=== PATIENT | male | born 1990 | race Caucasian/White ===

== ENCOUNTER 2018-02-17 13:44 | Emergency (ER) | payer OTHER ==
[~2018-02-17] VITALS: Ht 180.3 cm; Wt 113.4 kg
[2018-02-17 14:17] LABS: ABSOLUTE BASOPHILS 0.1 thou/uL (0.0-0.2); ABSOLUTE EOSINOPHILS 0.1 thou/uL (0.0-0.7); ABSOLUTE LYMPHOCYTES 3.1 thou/uL (0.8-5.3); ABSOLUTE MONOCYTES 0.9 thou/uL (0.0-1.2); ABSOLUTE NEUTROPHILS 6.7 thou/uL (1.6-8.1); BASOPHILS 0.6 %; EOSINOPHILS 0.5 %; HEMATOCRIT 49.7 % (42.0-52.0); HEMOGLOBIN 16.6 gm/dL (14.0-18.0); LYMPHOCYTES 28.5 %; MCH 28.3 pg (26.0-34.0); MCHC 33.5 g/dL (28.0-37.0); MCV 84.5 fL (80.0-100.0); MONOCYTES 8.2 %; MPV 8.9 fl. (7.2-11.1); NUCLEATED RBCS 0 /100WBC; PLATELET COUNT* 235 thou/uL (150-400); POLYS 62.2 %; RBC 5.88 mil/uL (4.50-6.00); RDW-CV 13.6 % (10.5-14.5); WBC 10.7 thou/uL (4.0-11.0)
[2018-02-17 14:25] LABS: CALCIUM 8.8 mg/dL (8.5-10.1); CREATININE 1.4 mg/dL (0.6-1.3); POTASSIUM 3.3 mmol/L (3.5-5.1)
[2018-02-17 14:30] LABS: ALBUMIN 3.7 g/dL (3.4-5.0); TOTAL BILIRUBIN 0.6 mg/dL (<0.1-1.0); TOTAL PROTEIN 7.7 g/dL (6.4-8.2)
[2018-02-17] MEDS ORDERED: TORADOL 10 MG T10 MG PO (17:35)
[2018-02-17] MEDS ORDERED: VALIUM5 MG PO (17:35)
[2018-02-17] MEDS ORDERED: NORCO 5-325 TA1 EACH PO (17:35)
[2018-02-17 17:59] VITALS: BP 127/80
--- NOTE | 2018-02-19 12:46 | EKG ---
[place] [address] ELECTROCARDIOGRAM REPORT Name: ALEX SOLANO [facility] [id number] Admission: 02/17/18 Attend Phys: Discharge: 02/17/18 Date of : 88 Report #: [id number] THIS REPORT FOR: //name// [facility] ED Test Date: 2018-02-17 Test Time: 13:59:55 Pat Name: ALEX SOLANO Department: Room: Gender: M [employer]: : 1990 Requested By: Sri Marquis Order Number: [id number] Reading : Jonathan Lucero Measurements Intervals [place] Rate: 120 P: 36 W[place]: 148 QRS: 53 QRSD: 87 T: 5 QT: 313 QTc: 443 Interpretive Statements Sinus tachycardia No previous ECG available for comparison Electronically Signed On 02-19-2018 12:45:58 CDT by Jonathan Lucero [email or web address] <ELECTRONICALLY SIGNED> By: Jonathan Lucero MD, [facility] 02/19/18 1245 1359 [id number] Jonathan Lucero MD, FACC /EPI
== END 2018-02-17 17:59 | disposition home or self-care (01) ==
LOC: M.ERS 13:44
PROVIDERS: Personal Emergency Response Attendant
DX: S06.0X9A Concussion with loss of consciousness of unspecified duration, initial encounter (principal); S16.1XXA Strain of muscle, fascia and tendon at neck level, initial encounter; S40.011A Contusion of right shoulder, initial encounter; V19.9XXA Pedal cyclist (driver) (passenger) injured in unspecified traffic accident, initial encounter; Y93.55 Activity, bike riding; Y92.89 Other specified places as the place of occurrence of the external cause; Y99.8 Other external cause status

== ENCOUNTER 2019-08-16 23:28 | Emergency (ER) | payer OTHER ==
[~2019-08-16] VITALS: Ht 180.3 cm; Wt 113.4 kg
[~2019-08-16 23:28] MED LIST: NORCO 5-325 TA1 EACH PO; TORADOL 10 MG T10 MG PO; VALIUM5 MG PO
[2019-08-17] MEDS ORDERED: CIPROFLOXIN HC2.5 M1 OPHTHALMIC (00:51)
[2019-08-17] MEDS ORDERED: HALDOL 0.5 MG0.5 MG PO (00:52)
[2019-08-17] MEDS ORDERED: ERYTHROMYCIN E3.5 G3 OPHTHALMIC (01:28)
[2019-08-17 01:35] VITALS: BP 118/67
== END 2019-08-17 01:35 | disposition home or self-care (01) ==
LOC: M.ERS 23:28
DX: T15.91XA Foreign body on external eye, part unspecified, right eye, initial encounter (principal); X58.XXXA Exposure to other specified factors, initial encounter; Y93.89 Activity, other specified; Y92.89 Other specified places as the place of occurrence of the external cause; Y99.8 Other external cause status

== ENCOUNTER 2020-09-09 21:20 | Emergency (ER) | payer OTHER ==
[~2020-09-09] VITALS: Ht 180.3 cm; Wt 111.1 kg
[~2020-09-09 21:20] MED LIST changes: +CIPROFLOXIN HC2.5 M1 OPHTHALMIC; +ERYTHROMYCIN E3.5 G3 OPHTHALMIC; +HALDOL 0.5 MG0.5 MG PO
[2020-09-09] MEDS ORDERED: TYLENOL325 M1 PO (21:38)
[2020-09-09] MEDS ORDERED: IBU800 MG PO (21:38)
[2020-09-09 23:02] LABS: URINE BILIRUBIN NEGATIVE (Negative); URINE BLOOD NEGATIVE (Negative); URINE CLARITY CLEAR; URINE COLOR YELLOW; URINE GLUCOSE-RANDOM NEGATIVE (Negative); URINE KETONES NEGATIVE (Negative); URINE LEUKOCYTES-REFLEX NEGATIVE (Negative); URINE NITRITE-REFLEX NEGATIVE (Negative); URINE PROTEIN NEGATIVE (Negative); URINE SPECIFIC GRAVITY >= 1.030 (1.005-1.030); URINE UROBILINOGEN 0.2 E.U./dl (0.2-1.0)
[2020-09-09 23:09] LABS: AMP/METHAMP Negative (Negative); BARBITURATES Negative (Negative); BENZODIAZEPINES Negative (Negative); COCAINE Negative (Negative); METHADONE Negative (Negative); OPIATES POSITIVE (Negative); PCP Negative (Negative); THC Negative (Negative)
[2020-09-09] MEDS ORDERED: DIAZEPAM 5 MG5 M1 PO (23:56)
[2020-09-09] MEDS ORDERED: PERCOCET 5-3251 EACH PO (23:56)
[2020-09-09] MEDS ORDERED: MOBIC15 MG PO (23:56)
[2020-09-10 00:39] VITALS: BP 118/68
== END 2020-09-10 00:39 | disposition home or self-care (01) ==
LOC: M.ERS 21:20
PROVIDERS: Personal Emergency Response Attendant
DX: M51.26 Other intervertebral disc displacement, lumbar region (principal); Z79.899 Other long term (current) drug therapy

== ENCOUNTER 2021-05-30 20:46 | Emergency (ER) | payer OTHER ==
[~2021-05-30] VITALS: Ht 182.9 cm; Wt 105.2 kg
[~2021-05-30 20:46] MED LIST changes: +DIAZEPAM 5 MG5 M1 PO; +IBU800 MG PO; +MOBIC15 MG PO; +PERCOCET 5-3251 EACH PO; +TYLENOL325 M1 PO
[2021-05-30 21:25] LABS: INFLUENZA A ANTIGEN Negative (Negative); INFLUENZA B ANTIGEN Negative (Negative)
[2021-05-30 21:36] VITALS: BP 120/70
[2021-05-30] MEDS ORDERED: FLEXERIL PO (21:36)
[2021-05-30] MEDS ORDERED: ZOFRAN ODT4 MG PO (21:36)
== END 2021-05-30 21:41 | disposition home or self-care (01) ==
LOC: M.ERS 20:46
PROVIDERS: Personal Emergency Response Attendant
DX: U07.1 COVID-19 (principal)